=== PATIENT | female | born 2000 | race Caucasian/White ===

== ENCOUNTER 2018-04-13 11:40 | Emergency (ER) | payer BC ==
[2018-04-13] MEDS ORDERED: NS 1,000 ML IV ONE ×2 (13:37)
[2018-04-13] MEDS ORDERED: ONDANSETRON 4 MG/2 ML VIAL IVP ONE (13:37)
--- NOTE | 2018-04-13 13:37 | EDPHY ---
H & P Stated Complaint: vomiting, fever, dx with kidney infection yesterday- hasn't taken abx Time Seen by Provider: 04/13/18 13:05 HPI/ROS: CHIEF COMPLAINT: Recently diagnosed with kidney infection, vomiting HISTORY OF PRESENT ILLNESS: Patient was diagnosed with pyelonephritis yesterday. She was started on Bactrim and Zofran. She presents to the ED today with complaints of intractable vomiting. The patient denies fever. She complains of moderate right CVA tenderness. Patient denies additional symptoms of cough, congestion or chest pain. The patient does report antecedent dysuria and frequency. REVIEW OF SYSTEMS: A comprehensive 10 point review of systems is otherwise negative aside from elements mentioned in the history of present illness. Source: Patient Exam Limitations: No limitations - Personal History LMP (Females 10-55): IUD In Place Current Tetanus/Diphtheria Vaccine: Yes Current Tetanus Diphtheria and Acellular Pertussis (TDAP): Yes - Medical/Surgical History Hx Asthma: No Hx Chronic Respiratory Disease: No Hx Diabetes: No Hx Cardiac Disease: No Hx Renal Disease: No Hx Cirrhosis: No Hx Alcoholism: No Hx HIV/AIDS: No Hx Splenectomy or Spleen Trauma: No - Social History Smoking Status: Current every day smoker - Physical Exam Exam: General Appearance: Alert, mild discomfort Eyes: Pupils equal and round no pallor or injection ENT, Mouth: Mucous membranes moist Respiratory: There are no retractions, lungs are clear to auscultation Cardiovascular: Regular rate and rhythm Gastrointestinal: Right CVA tenderness Neurological: 5/5 strength noted all 4 extremities Skin: Warm and dry, no rashes Musculoskeletal: Neck is supple nontender Extremities: symmetrical, full range of motion Psychiatric: Patient is oriented X 3, there is no agitation Constitutional: Initial Vital Signs Temperature (C) 36.7 C 04/13/18 11:59 Heart Rate 86 04/13/18 11:59 Respiratory Rate 16 04/13/18 11:59 Blood Pressure 117/64 04/13/18 11:59 O2 Sat (%) 98 04/13/18 11:59 O2 Delivery Mode Room Air Allergies/Adverse Reactions: No Known Allergies Allergy (Unverified 04/13/18 12:03) Home Medications: Medication Instructions Recorded Cephalexin [Keflex] 500 mg PO QID #28 cap 04/13/18 Medical Decision Making ED Course/Re-evaluation: The patient presents to the ED with intractable vomiting in the setting of pyelonephritis. The patient had an IV established. She received a L of normal saline. She received 1 g of IV ceftriaxone. Urinalysis does demonstrate pyuria. Patient is noted to have a significant leukocytosis. Patient's vital signs are stable. She has no evidence of septic physiology. She does not have SIRS criteria as she has no fever, leukocytosis or tachypnea in the ED. I re-evaluated the patient at 2:40 p.m.. The patient reports she is feeling fine. She would like to be discharged home. She has been informed that she can return to the ED at any time should she developed recurrent symptoms of pain or vomiting. Her vital signs continued to be normal. The patient will be started on Keflex and taken off of Bactrim. Differential Diagnosis: Differential diagnosis considered includes cystitis, pyelonephritis, appendicitis - Data Points Laboratory Results: Laboratory Results 04/13/18 13:07 04/13/18 13:07 04/13/18 04/13/18 04/13/18 13:07 13:07 13:07 WBC 30.97 10^3/uL H 10^3/uL (3.80-9.50) RBC 4.88 10^6/uL 10^6/uL (4.18-5.33) Hgb 12.2 g/dL L g/dL (12.6-16.3) Hct 36.5 % L % (38.0-47.0) MCV 74.8 fL L fL (81.5-99.8) MCH 25.0 pg L pg (27.9-34.1) MCHC 33.4 g/dL g/dL (32.4-36.7) RDW 15.6 % H % (11.5-15.2) Plt Count 353 10^3/uL 10^3/uL (150-400) MPV 9.3 fL fL (8.7-11.7) Neut % (Auto) 89.4 % H % (39.3-74.2) Lymph % (Auto) 4.5 % L % (15.0-45.0) [place] % (Auto) 5.0 % % (4.5-13.0) Eos % (Auto) 0.0 % L % (0.6-7.6) Baso % (Auto) 0.2 % L % (0.3-1.7) Nucleat RBC Rel Count 0.0 % % (0.0-0.2) Absolute Neuts (auto) 27.69 10^3/uL H 10^3/uL (1.70-6.50) Absolute Lymphs (auto) 1.39 10^3/uL 10^3/uL (1.00-3.00) Absolute Monos (auto) 1.55 10^3/uL H 10^3/uL (0.30-0.80) Absolute Eos (auto) 0.00 10^3/uL L 10^3/uL (0.03-0.40) Absolute Basos (auto) 0.06 10^3/uL 10^3/uL (0.02-0.10) Absolute Nucleated RBC 0.00 10^3/uL 10^3/uL (0-0.01) Immature Gran % 0.9 % % (0.0-1.1) Immature Gran # 0.28 10^3/uL H 10^3/uL (0.00-0.10) RBC/WBC/PLT Morphology TNP Platelet Estimate TNP Sodium 138 mEq/L mEq/L (135-145) Potassium 3.5 mEq/L mEq/L (3.5-5.2) Chloride 103 mEq/L mEq/L (97-110) Carbon Dioxide 21 mEq/l L mEq/l (22-31) Anion Gap 14 mEq/L mEq/L (6-14) BUN 14 mg/dL mg/dL (7-23) Creatinine 0.7 mg/dL mg/dL (0.6-1.0) Estimated GFR > 60 Glucose 141 mg/dL H mg/dL (70-100) Calcium 9.9 mg/dL mg/dL (8.5-10.4) Beta HCG, Qual NEGATIVE Urine Color Urine Appearance Urine pH Ur Specific [place] Urine Protein Urine Ketones Urine Blood Urine Nitrate Urine Bilirubin Urine Urobilinogen Ur Leukocyte Esterase Urine RBC Urine WBC Ur Epithelial Cells Urine Bacteria Hyaline Casts Urine Mucus Urine Glucose 04/13/18 13:00 WBC RBC Hgb Hct MCV MCH MCHC RDW Plt Count MPV Neut % (Auto) Lymph % (Auto) [place] % (Auto) Eos % (Auto) Baso % (Auto) Nucleat RBC Rel Count Absolute Neuts (auto) Absolute Lymphs (auto) Absolute Monos (auto) Absolute Eos (auto) Absolute Basos (auto) Absolute Nucleated RBC Immature Gran % Immature Gran # RBC/WBC/PLT Morphology Platelet Estimate Sodium Potassium Chloride Carbon Dioxide Anion Gap BUN Creatinine Estimated GFR Glucose Calcium Beta HCG, Qual Urine Color YELLOW Urine Appearance HAZY Urine pH 5.0 (5.0-7.5) Ur Specific [place] 1.033 H (1.002-1.030) Urine Protein 2+ H (NEGATIVE) Urine Ketones 2+ H (NEGATIVE) Urine Blood 2+ H (NEGATIVE) Urine Nitrate NEGATIVE (NEGATIVE) Urine Bilirubin NEGATIVE (NEGATIVE) Urine Urobilinogen NEGATIVE EU EU (0.2-1.0) Ur Leukocyte Esterase TRACE H (NEGATIVE) Urine RBC 15-25 /hpf H /hpf (0-3) Urine WBC 50-182 /hpf H /hpf (0-3) Ur Epithelial Cells TRACE /lpf /lpf (NONE-1+) Urine Bacteria TRACE /hpf H /hpf (NONE SEEN) Hyaline Casts 1-5 /lpf /lpf (0-1) Urine Mucus 2+ /lpf H /lpf (NONE-1+) Urine Glucose 1+ H (NEGATIVE) Medications Given: Discontinued Medications Ceftriaxone Sodium/Dextrose (Rocephin 1 Gm (Premix)) 50 mls @ 100 mls/hr IV EDNOW ONE PRN Reason: Protocol Stop: 04/13/18 13:45 Last Admin: 04/13/18 13:29 Dose: 50 mls Sodium Chloride (Ns) 1,000 mls @ 0 mls/hr IV EDNOW ONE; Wide Open PRN Reason: Protocol Stop: 04/13/18 13:38 Last Admin: 04/13/18 13:50 Dose: 1,000 mls Sodium Chloride (Ns) 1,000 mls @ 0 mls/hr IV EDNOW ONE; Wide Open PRN Reason: Protocol Stop: 04/13/18 13:38 Last Admin: 04/13/18 14:27 Dose: 1,000 mls Ondansetron HCl (Zofran) 4 mg IVP EDNOW ONE Stop: 04/13/18 13:38 Last Admin: 04/13/18 13:51 Dose: 4 mg Departure - Departure Disposition: Home, Routine, Self-Care Clinical Impression: Acute pyelonephritis Condition: Good Instructions: Urinary Tract Infection in Women (ED) Additional Instructions: 1. Stop taking Bactrim and begin taking Keflex. 2. Zofran as needed for nausea. 3. Return to the ED for any recurrent vomiting, any worsening abdominal pain, fever, dehydration or other concerns. Referrals: MAYRA Moreno,. [Clinic] - As per Instructions
[2018-04-13 13:45] LABS: PLATELET COUNT 353 10^3/uL (150-400)
[2018-04-13 14:29] VITALS: BP 110/70
== END 2018-04-13 15:10 | disposition home or self-care (01) ==
DX: N10 Acute pyelonephritis (principal); R11.10 Vomiting, unspecified
CPT/HCPCS: 96374; J0696; J2405